=== PATIENT | female | born 1970 | race Hispanic/Latino ===

== ENCOUNTER 2016-12-06 13:32 | Outpatient (CLI) | payer BC ==
--- NOTE | 2016-12-06 15:33 | Mammography Report ---
BILATERAL DIGITAL DIAGNOSTIC MAMMOGRAM with CAD and LEFT BREAST ULTRASOUND: 12/06/16 13:32:00 CLINICAL: Left breast lump. COMPARISON:None. FINDINGS: The breasts are heterogeneously dense, which may obscure small masses. Proximal asymmetry in the upper-outer left breast in the area of a palpable marker demonstrates partial effacement with spot magnification.At least 2 groups of calcifications in the upper-outer quadrant of the left breast have suspicious morphology. The larger group is more posterior and more superior and a smaller group is closer to the nipple with fewer calcifications. The larger group of calcifications roughly correlates with where a lump has been felt. Ultrasound of the left breast (including all four quadrants and the retroareolar area) was performed and demonstrated several benign cysts and no solid mass. The largest cyst is at 1 o'clock 4 cm from nipple and it measures 2.6 x 0.8 x 2.2 cm. A cyst at 3 o'clock 4 cm from the nipple measures 8 x 5 x 2 mm. A cyst at 10 o'clock 3 cm from the nipple measures 6 x 5 x 5 mm. A cyst at 12 o'clock 4 cm from the nipple measures 7 x 3 x 8 mm. IMPRESSION: Suspicious calcifications in the upper-outer left breast. Recommend stereotactic biopsy of possibly 2 sites. Benign cysts of the left breast and no solid mass. BI-RADS CATEGORY: 4--Suspicious RECOMMENDATION: Stereotactic biopsy of the left breast. I discussed the findings and the recommendation for stereotactic needle core biopsy of the left breast with the patient at the time of the examination. ACR BI-RADS MAMMOGRAPHIC CODES: 0 = Needs additional imaging evaluation; 1 = Negative; 2 = Benign; 3 = Probably benign; 4 = Suspicious; 5 = Malignant; 6 = Known biopsy-proven malignancy COMMENT: 1. Dense breast tissue, i.e., adenosis, fibrocystic changes, etc., may obscure an underlying neoplasm. 2. Approximately 10% of cancers are not detected with mammography. 3. A negative mammography report should not delay biopsy if a clinically suspicious mass is present. COMMENT: Patient follow-up letters are generated by our [employer] application.
== END 2016-12-06 13:33 | disposition home or self-care (01) ==
LOC: SPVWC 13:32
PROVIDERS: ATTEND Obstetrics & Gynecology Gynecology
DX: N60.02 Solitary cyst of left breast (principal); R92.1 Mammographic calcification found on diagnostic imaging of breast
CPT/HCPCS: 76641; G0204; 77066